=== PATIENT | female | born 1980 | race Caucasian/White ===

== ENCOUNTER 2020-09-30 20:28 | Emergency (ER) | payer OTHER ==
[~2020-09-30 20:28] MED LIST: BACTRIM DS TAB1 EACH PO; KEFLEX CAP 500500 MG PO; MOBIC15 MG PO
[2020-09-30 21:08] LABS: HEMOGLOBIN 13.7 gm/dl (12.3-15.3); RED BLOOD COUNT 4.65 M/UL (4.00-5.10); WHITE BLOOD COUNT 5.5 K/UL (4.5-11.0)
[2020-09-30] MEDS ORDERED: IBUPROFEN800 MG PO ×2 (21:15→22:35)
[2020-09-30] MEDS ORDERED: AUGMENTIN 875-1 EACH PO (21:15)
[2020-09-30 21:28] LABS: BUN/CREATININE RATIO 25 (0-10)
[2020-09-30] MEDS ORDERED: CYCLOBENZAPRINE5 MG PO (22:35)
== END 2020-09-30 22:57 | disposition home or self-care (01) ==
LOC: ER1 20:28
PROVIDERS: Emergency Medicine
DX: S50.01XA Contusion of right elbow, initial encounter (principal); S70.01XA Contusion of right hip, initial encounter; F17.210 Nicotine dependence, cigarettes, uncomplicated; Z86.73 Personal history of transient ischemic attack (TIA), and cerebral infarction without residual deficits; V03.10XA Pedestrian on foot injured in collision with car, pick-up truck or van in traffic accident, initial encounter; Y92.410 Unspecified street and highway as the place of occurrence of the external cause
CPT/HCPCS: 36600; 70450; 71045; 71260; 72125; 72128; 72131; 73080; 73502; 80053; 80307; 81001; 82803; 83605; 85025; 85610; 85730; 86850; 86900; 86901; 96374; 96375; 99284; G0480; J2270; J2405; Q9967